=== PATIENT | female | born 1980 | race Caucasian/White ===

== ENCOUNTER 2019-08-09 18:57 | Emergency (ER) | payer MEDICAID ==
[2019-08-09] MEDS ORDERED: NORMAL SALINE 1000 ML 1,000 ML IV ONE ×2 (19:35→20:35)
[2019-08-09 19:45] LABS: ABSOLUTE BASOPHILS # (AUTO) 0.1 10^3/uL (0.0-0.2); ABSOLUTE EOSINOPHILS # (AUTO) 0.3 10^3/uL (0.0-0.6); ABSOLUTE LYMPHOCYTES (AUTO) 4.3 10^3/uL (0.5-4.7); ABSOLUTE MONOCYTES (AUTO) 0.7 10^3/uL (0.1-1.4); ABSOLUTE NEUT (AUTO) 5.3 10^3/uL (1.7-8.2); BASOPHILS % (AUTO) 0.8 % (0-2); EOSINOPHILS % (AUTO) 3.1 % (0-6); HEMATOCRIT 40.4 % (36.0-47.0); LYMPHOCYTES % (AUTO) 40.2 % (13-45); MEAN CORPUSCULAR HEMOGLOBIN 29.9 pg (27.0-33.4); MEAN CORPUSCULAR HGB CONC 34.8 g/dL (32.0-36.0); MEAN CORPUSCULAR VOLUME 86 fl (80-97); MONOCYTES % (AUTO) 6.8 % (3-13); PLATELET COUNT 334 10^3/uL (150-450); RED CELL DISTRIBUTION WIDTH 13.8 % (11.5-14.0); SEGMENTED NEUTROPHILS % (AUTO) 49.1 % (42-78); TOTAL CELLS COUNTED % (AUTO) 100 %; WHITE BLOOD COUNT 10.7 10^3/uL (4.0-10.5)
[2019-08-09] MEDS ORDERED: ONDANSETRON HCL INJ/PF 4 MG/2 ML SDV IV ONE (19:52)
[2019-08-09 20:04] LABS: ALBUMIN 4.5 g/dL (3.5-5.0); ALKALINE PHOSPHATASE 66 U/L (38-126); ANION GAP 10 (5-19); ASPARTATE AMINO TRANSFERASE 12 U/L (14-36); BILIRUBIN,TOTAL 0.3 mg/dL (0.2-1.3); BLOOD UREA NITROGEN 18 mg/dL (7-20); CARBON DIOXIDE 24 mmol/L (22-30); CHLORIDE 104 mmol/L (98-107); GLUCOSE 156 mg/dL (75-110); POTASSIUM 3.7 mmol/L (3.6-5.0); TOTAL PROTEIN 7.8 g/dL (6.3-8.2)
[2019-08-09 20:12] LABS: APPEARANCE,URINE SLIGHTLY-CLOUDY; BILIRUBIN,URINE NEGATIVE (NEGATIVE); COLOR,URINE YELLOW; GLUCOSE, URINE NEGATIVE (NEGATIVE); KETONES,URINE NEGATIVE (NEGATIVE); PROTEIN,URINE NEGATIVE (NEGATIVE); URINE SPECIFIC GRAVITY 1.023; UROBILINOGEN,URINE NEGATIVE mg/dL (<2.0)
--- NOTE | 2019-08-09 20:22 | RADIOLOGY REPORT (SQ) ---
EXAM DESCRIPTION: XR CHEST 1 VIEW COMPLETED DATE/TME: 08/09/2019 19:23 CLINICAL HISTORY: 38 years Female chest pain COMPARISON: None. FINDINGS: The cardiomediastinal silhouette appears unremarkable. No consolidating infiltrates or pleural effusions. No pneumothorax. IMPRESSION: No acute abnormality is identified.
[2019-08-09 20:26] LABS: URINE AMPHETAMINES SCREEN NEGATIVE; URINE BARBITURATES SCREEN NEGATIVE; URINE BENZODIAZEPINES SCREEN NEGATIVE; URINE COCAINE SCREEN NEGATIVE; URINE METHADONE SCREEN NEGATIVE; URINE PHENCYCLIDINE SCREEN NEGATIVE
[2019-08-09 20:27] LABS: URINE MARIJUANA (THC) SCREEN UNCONFIRMED POSITIVE
[2019-08-09] MEDS ORDERED: LORAZEPAM INJ 2 MG/1 ML VIAL IV ONE (20:35)
--- NOTE | 2019-08-09 20:43 | ER Document Report ---
ED General - General Chief Complaint: Chest Pressure Stated Complaint: ANXIETY Time Seen by Provider: 08/09/19 19:06 - HPI Notes: Chief complaint: Palpitations and chest tightness History of present illness: 38-year-old female with history of chronic low back pain treated in the past with opiates but currently on no medication. Patient is traveled here within the last 24 hours from the [facility] to visit her son who is in service stationed here. Her back was hurting after the trip. She does not routinely use cannabis but obtained a cannabis containing edible from an acquaintance and ingested some of this afternoon. Within 1 hour she experienced palpitations and chest tightness along with dizziness and felt very anxious. She presented to the emergency department for further evaluation. She describes a vague sensation of tightness in her chest without radiation. This is nonpleuritic. Location is central chest. Patient has a history of mitral valve prolapse. No other history of cardiovascular disease. Currently taking no prescription medications. She has no history of hypertension, hyperlipidemia, diabetes mellitus, cigarette smoking or thromboembolic disease. She denies use of cocaine. Father had cardiac problems and she believes he may have had a heart attack. HEART Score: HISTORY 1 ECG 1 AGE 1 RISK FACTORS 1 TROPONIN 0 TOTAL: 3 If HEART score is < or= 3 AND both tronponin measurments are normal, the 30 day risk of a major adverse cardiac event (all-cause mortality, myocardia infarction or need for coronary revscularization) is < 1% (Sensitivity 100%, NPV 100%). - Related Data Allergies/Adverse Reactions: No Known Allergies Allergy (Verified 08/09/19 19:26) Past Medical History - General Information source: Patient - Social History Smoking Status: Never Smoker Drug Abuse: Marijuana Family History: CAD Patient has homicidal ideation: No - Past Medical History Cardiac Medical History: Denies: Hx Coronary Artery Disease, Hx Heart Attack, Hx Pulmonary Embolism Endocrine Medical History: Denies: Hx Diabetes Mellitus Type 1, Hx Diabetes Mellitus Type 2 Past Surgical History: Reports: Hx Tubal Ligation Review of Systems - Review of Systems Notes: Constitutional: Negative for fever. HENT: Negative for sore throat. Eyes: Negative for visual changes. Cardiovascular: As per HPI. Respiratory: As per HPI. Gastrointestinal: Negative for abdominal pain, vomiting or diarrhea. Genitourinary: Negative for dysuria. Musculoskeletal: Negative for back pain. Skin: Negative for rash. Neurological: Negative for headaches, focal weakness or numbness. 10 point ROS negative except as marked above and in HPI. Physical Exam - Vital signs Vitals: Temp Pulse Resp BP Pulse Ox 98.6 F 163 H 30 H 139/94 H 98 08/09/19 19:11 08/09/19 19:11 08/09/19 19:11 08/09/19 19:11 08/09/19 19:11 - Notes Notes: GENERAL: Well-developed well-nourished appearing mildly anxious and otherwise in no acute distress. SKIN: Good turgor no rashes. HEAD: Normocephalic atraumatic. EYES: PERRLA. EOMI. Conjunctivae and sclerae clear. EARS: CANALS AND TMS CLEAR. NOSE: CLEAR. MOUTH: Moist mucosa. Good dentition. No stridor or edema. No drooling. NECK: Supple. No masses or thyromegaly. No adenopathy. Carotids 2+ without bruits. No JVD. BACK: Symmetrical without tenderness. CHEST: Respirations unlabored. Breath sounds clear and symmetrical. HEART: Tachycardic regular rhythm. No murmur gallop or rub. ABDOMEN: Soft nontender without masses, organomegaly or rebound. Bowel sounds normally active. No bruits. GENITALIA: Deferred. EXTREMITIES: No edema. No calf tenderness. Cap refill less than 1.5 seconds. Dorsalis pedis and posterior tibial pulses 3+ and symmetrical. NEUROLOGICAL: GCS 15. Alert and oriented x3. Mild generalized tremor. Fluent speech. Cranial nerves II through XII intact. Sensorimotor and cerebellar normal. Normal tone. PSYCHIATRIC: Appropriate affect. Course - Re-evaluation Re-evalutation: 08/09/19 23:42 Patient is experienced adverse reaction to apparent high concentration of cannabis contained in an edible product which she ingested shortly before coming in here. She is very tachycardic and had some vague tightness in her chest. Sh e also had some nausea vomiting. Her initial EKG was remarkable for a sinus tachycardia. There was no acute ST changes noted. She was treated symptomatically with IV fluids IV benzodiazepine and IV Zofran. Symptoms quickly resolved. We kept her under observation for several hours. She had no return of symptoms. Her pulse rate was down into the 80s with a normal blood pressure and second EKG and troponin were normal. Her heart score is 3. She was advised to abstain from any use of cannabis in any form and is referred for outpatient primary care and cardiology follow-up. - Vital Signs Vital signs: Temp Pulse Resp BP Pulse Ox 98.6 F 163 H 30 H 114/80 100 08/09/19 19:12 08/09/19 19:11 08/09/19 23:01 08/09/19 23:01 08/09/19 23:01 - Laboratory Result Diagrams: 08/09/19 19:27 08/09/19 19:27 Laboratory results interpreted by me: 08/09/19 08/09/19 19:27 19:27 WBC 10.7 H Glucose 156 H AST 12 L - EKG Interpretation by Me Additional EKG results interpreted by me: 08/09/19 20:45 Initial EKG from 1909 hrs. reviewed by me contemporaneously showing sinus tachycardia rate 166, left atrial abnormality and right axis deviation of 121 degrees with a borderline prolongation of QT interval. No acute ST/T wave changes. Discharge - Discharge Clinical Impression: Adverse reaction to cannabis Qualifiers: Encounter type: initial encounter Qualified Code(s): T40.7X5A - Adverse effect of cannabis (derivatives), initial encounter Condition: Stable Disposition: HOME, SELF-CARE Additional Instructions: Do not use cannabis in any form. Return here as needed for new or worsening symptoms: Pain that is worsening or unimproved Uncontrolled vomiting High fever or shaking chills Overall worsening Follow-up with referral physician within the next 1 week. Referrals: [facility] [Provider Group] - Follow up as needed
[2019-08-09 23:49] VITALS: BP 119/86
--- NOTE | 2019-08-10 09:25 | EKG REPORT ---
SEVERITY:- NORMAL ECG - SINUS RHYTHM : Confirmed by: Juli Garcia MD 10-Aug-2019 09:24:27
--- NOTE | 2019-08-10 09:25 | EKG REPORT ---
SEVERITY:- ABNORMAL ECG - SINUS TACHYCARDIA PROBABLE LEFT ATRIAL ABNORMALITY RIGHT AXIS DEVIATION PROBABLE INFERIOR INFARCT, AGE INDETERMINATE BORDERLINE PROLONGED QT INTERVAL : Confirmed by: Juli Garcia MD 10-Aug-2019 09:24:36
== END 2019-08-09 23:49 | disposition home or self-care (01) ==
LOC: ER 18:57
DX: T40.7X5A Adverse effect of cannabis (derivatives), initial encounter (principal); R07.9 Chest pain, unspecified; R00.2 Palpitations; M54.5 Low back pain; G89.29 Other chronic pain; Z79.899 Other long term (current) drug therapy
CPT/HCPCS: 93005; 99284; 96361; 96374; 96375; 36415; 84703; 85025; 80053; 81001; 84484; 80307; 71045; 93010; J2060; J2405; J7030